=== PATIENT | female | born 1995 | race Caucasian/White ===

== ENCOUNTER → 2017-01-22 | Outpatient (CLI) | payer BC ==
[2017-01-22 14:06] LABS: HEMATOCRIT 40.3 % (35.0-45.0); HEMOGLOBIN 13.2 g/dl (12.0-15.0); MEAN CELL VOLUME 93 fl (80.0-95.0); MEAN CORPUSCULAR HEMOGLOBIN 30 pg (26.0-32.0); MEAN CORPUSCULAR HGB CONC 33 g/dl (33.0-37.0); MEAN PLATELET VOLUME 9.4 fl (7.4-10.4); PLATELET COUNT 276 K/mm3 (130-400); RED BLOOD COUNT 4.35 M/mm3 (4.10-5.30); WHITE BLOOD COUNT 9.8 K/mm3 (4.8-10.8)
[2017-01-22 14:14] LABS: PH 8 (5-8); SQUAMOUS EPITHELIAL 0-2 /hpf; URINE APPEARANCE Clear; URINE BACTERIA None Seen /hpf; URINE BILIRUBIN Negative (NEGATIVE); URINE BLOOD Negative (NEGATIVE); URINE COLOR Yellow; URINE GLUCOSE Negative (NEGATIVE); URINE KETONE Negative (NEGATIVE); URINE LEUKOCYTE ESTERASE Trace (NEGATIVE); URINE PROTEIN(semi-quant) Negative (NEGATIVE); URINE RBC 0-2 /hpf; URINE UROBILINOGEN Negative (NEGATIVE)
[2017-01-22 14:16] LABS: CALCIUM 9.6 mg/dL (8.4-10.2); CREATININE, serum 0.81 mg/dL (0.52-1.25)
[2017-01-22 14:37] LABS: COLLECTION METHOD CLEAN CATCH
== END ==
LOC: COL.LAB 13:37
DX: Z01.812 Encounter for preprocedural laboratory examination (principal); M20.11 Hallux valgus (acquired), right foot

== ENCOUNTER → 2018-01-21 | Outpatient (CLI) | payer BC | LOC: COL.RAD 13:30 | DX: N39.0 Urinary tract infection, site not specified (principal) ==

== ENCOUNTER → 2019-05-28 | Outpatient (CLI) | payer BC | LOC: COL.RAD 08:00 | DX: R10.11 Right upper quadrant pain (principal) ==

== ENCOUNTER 2019-06-08 12:13 | Day surgery (SDC) | payer BC ==
[~2019-06-08] VITALS: Ht 182.9 cm; Wt 136.6 kg
[2019-06-08] VITALS (8 sets, daily range): BP systolic 118–136; BP diastolic 63–78; PULSE 70–91; TEMP 97.5–98.1
[2019-06-08] MEDS ORDERED: BRINTELLIX10 PO (12:29)
[2019-06-08] MEDS ORDERED: PRILOSEC10 MG PO (12:29)
[2019-06-08] MEDS ORDERED: PIRMELLA 1/351 TAB PO (12:29)
[2019-06-08] MEDS ORDERED: MULTI VITAMINS1 TAB PO (12:30)
[2019-06-08] MEDS ORDERED: MOTRIN 600600 MG/TAB PO (13:34)
[2019-06-08] MEDS ORDERED: NORCO 325 MG-51 TAB PO (13:34)
[2019-06-08] MEDS ORDERED: COLACE 100100 MG/CAP PO (13:35)
--- NOTE | 2019-06-08 16:30 | NUR ---
Patient arrives to [facility] [place] [facility] for recovery. She is sleepy, lying in bed. She awakens to questions and is oriented. Monitoring is applied - VSS and WNL on room air. Surgical incisions x5 are clean, dry, swiftset intact. Lights are dimmed for comfort. She denies any needs at this time. Will continue to monitor.
--- NOTE | 2019-06-08 16:45 | NUR ---
Patient is asleep in room. VSS on room air.
--- NOTE | 2019-06-08 17:00 | NUR ---
Patient is sleeping. VSS and WNL on room air.
--- NOTE | 2019-06-08 17:15 | NUR ---
Patient is awake in room. VSS and WNL on room air. She denies nausea. She states she has 6/10 dull/achy pain in abdomen. She is ready to try to have some water and crackers, which is provided by staff. She is sitting up in bed, eating/drinking. Will treat pain with PO medication once she has some food in her stomach.
--- NOTE | 2019-06-08 17:30 | NUR ---
Patient is alert. VSS on room air. She denies nausea. She has had her crackers and some water, tolerating well. She calls nursing staff in to assist her to the restroom. She is escorted to the restroom by staff.
--- NOTE | 2019-06-08 17:40 | NUR ---
Patient voids a large amount of clear, yellow urine. She is escorted back to her room by staff. After ambulating, patient states she has a new onset of nausea. She thinks it may be pain related. She is given a PO pain pill for abdominal pain 07/21. Incisions remain clean, dry, intact. Will continue to monitor.
--- NOTE | 2019-06-08 18:00 | NUR ---
Patient is awake, sitting up in bed. She states that her nausea is gone. She states that her pain is improved, now rating it a 3/10. She states that she feels like she's ready to go home. Her ride is available to pick her up at 1830. Nursing staff will prepare her discharge paperwork and return to dismiss her.
--- NOTE | 2019-06-08 18:25 | NUR ---
Discharge instructions are discussed. Patient denies any questions and verbalizes understanding. PIV is removed with catheter intact and hemostasis achieved. Staff assists patient to change to her clothing.
--- NOTE | 2019-06-08 18:40 | NUR ---
Patient is escorted to the exit via wheelchair. She is discharged to home with ride in private vehicle at 1835.
== END 2019-06-08 18:35 | disposition home or self-care (01) ==
LOC: SDCO 12:13
DX: K81.1 Chronic cholecystitis (principal); Z79.899 Other long term (current) drug therapy; G47.30 Sleep apnea, unspecified; F32.9 Major depressive disorder, single episode, unspecified; Z88.2 Allergy status to sulfonamides; G47.33 Obstructive sleep apnea (adult) (pediatric); K21.9 Gastro-esophageal reflux disease without esophagitis; G89.29 Other chronic pain; Z87.440 Personal history of urinary (tract) infections; Z87.898 Personal history of other specified conditions
CPT/HCPCS: J0690; J1100; J1885; J2250; J2370; J2405; J2550; J2704; J3010; J7120; Q9967